=== PATIENT | female | born 1965 ===

== ENCOUNTER 2025-05-10 10:45 | Inpatient (IN) | payer OTHER ==
[~2025-05-10] VITALS: Ht 160 cm; Wt 52.2 kg
[2025-05-10 12:57] LABS: COVID-19 AG NEGATIVE (NEGATIVE)
[2025-05-10] MEDS ORDERED: TIROSINT88 MCG (14:20)
[2025-05-10] MEDS ORDERED: ANASTROZOLE1 MG (14:20)
[2025-05-16] MEDS ORDERED: METRONIDAZOLE/SODIUM CHLORIDE 500 MG/100 ML PIGGYBACK IV ONE (09:31)
[2025-05-16] MEDS ORDERED: CEFAZOLIN SODIUM 1,000 MG VIAL ONE ×2 (09:31→18:13)
[2025-05-16] MEDS ORDERED: POVIDONE-IODINE 118 ML BOTT TOP ONE (10:15)
[2025-05-16] MEDS ORDERED: HEPARIN SODIUM,PORCINE 5,000 UNITS/ML VIAL SPEPROC ONE (11:30)
[2025-05-16] MEDS ORDERED: SURGIFLO APPLICATOR 1 EACH APPL TOP ONE (12:34)
[2025-05-16] MEDS ORDERED: HEMOSTATIC MATRIX WITH THROMBIN KIT TOP ONE (12:34)
[2025-05-16] MEDS ORDERED: MORPHINE SULFATE 4 MG/ML CARTRIDGE IV PRN (14:00)
[2025-05-16] MEDS ORDERED: ONDANSETRON HCL 2 MG/ML VIAL IV PRN (14:00)
[2025-05-16] MEDS ORDERED: OxyCODONE HCL 5 MG TABLET (ROXICODONE) PO PRN (14:00)
[2025-05-16] MEDS ORDERED: RINGERS SOLUTION,LACTATED 1,000 ML IV SCH (14:00)
[2025-05-16 15:33] LABS: BASO % 0.1 % (0.1-1.2); EOS # 0.01 (0.04-0.54); EOS % 0.1 % (0.7-7.0); HEMATOCRIT 39.1 % (34.1-44.9); HEMOGLOBIN 12.8 g/dL (11.2-15.7); LYMPH # 0.59 (1.18-3.74); LYMPH % 5.5 % (19.3-53.1); MEAN CORPUSCULAR HEMOGLOBIN 29.4 pg (25.6-32.2); MONO # 0.41 (0.24-0.82); MONO % 3.8 % (4.7-12.5); NEUT % 90.2 % (34.0-71.1); PLATELET COUNT 203 K/uL (163-369); RED BLOOD COUNT 4.36 M/uL (3.93-5.22); RED CELL DISTRIBUTION WIDTH 14.7 % (11.6-14.4)
[2025-05-16 15:48] LABS: POTASSIUM 4.31 mEq/L (3.5-5.1)
[2025-05-16 15:53] LABS: ALBUMIN 3.7 gm/dL (3.4-5.0); CALCIUM 8.7 mg/dL (8.5-10.1); CREATININE SERUM 0.5 mg/dL (0.55-1.02); GFR 126.28; PHOSPHOROUS 3.4 mg/dL (2.5-4.9)
[2025-05-16] MEDS ORDERED: CEFAZOLIN SODIUM 1,000 MG VIAL IV SCH (17:00)
[2025-05-16] MEDS ORDERED: GABAPENTIN 300 MG CAPSULE PO SCH (17:00)
[2025-05-16] MEDS ORDERED: SIMETHICONE 125 MG CAPSULE PO SCH (17:00)
[2025-05-16] MEDS ORDERED: KETOROLAC TROMETHAMINE 30 MG VIAL IM SCH (18:00)
[2025-05-16] MEDS ORDERED: SIMETHICONE 125 MG CAPSULE PO ONE (18:12)
[2025-05-16] MEDS ORDERED: GABAPENTIN 300 MG CAPSULE PO ONE (18:12)
[2025-05-16] MEDS ORDERED: KETOROLAC TROMETHAMINE 30 MG VIAL ONE (18:13)
[2025-05-16 19:20] VITALS: BP 123/75; O2SAT 95
[2025-05-16] MEDS ORDERED: FAMOTIDINE/PF 20 MG/2 ML VIAL IV PUSH SCH (21:00)
[2025-05-17 01:11] VITALS: BP 111/63; O2SAT 99
[2025-05-17] MEDS ORDERED: LEVOTHYROXINE SODIUM 88 MCG TABLET PO SCH (06:00)
[2025-05-17] MEDS ORDERED: KETOROLAC TROMETHAMINE 30 MG VIAL IV SCH (06:17)
[2025-05-17 07:00] LABS: BASO % 0.1 % (0.1-1.2); EOS # 0.01 (0.04-0.54); EOS % 0.1 % (0.7-7.0); HEMATOCRIT 33.6 % (34.1-44.9); HEMOGLOBIN 11.1 g/dL (11.2-15.7); LYMPH # 0.58 (1.18-3.74); LYMPH % 7.5 % (19.3-53.1); MEAN CORPUSCULAR HEMOGLOBIN 29.1 pg (25.6-32.2); MONO # 0.48 (0.24-0.82); MONO % 6.2 % (4.7-12.5); NEUT # 6.69 (1.56-6.13); PLATELET COUNT 175 K/uL (163-369); RED BLOOD COUNT 3.81 M/uL (3.93-5.22); RED CELL DISTRIBUTION WIDTH 15.1 % (11.6-14.4)
[2025-05-17 07:43] LABS: ALBUMIN 2.7 gm/dL (3.4-5.0); CALCIUM 7.9 mg/dL (8.5-10.1); CREATININE SERUM 0.5 mg/dL (0.55-1.02); GFR 126.28; PHOSPHOROUS 3.9 mg/dL (2.5-4.9); POTASSIUM 3.62 mEq/L (3.5-5.1)
[2025-05-17 08:00] VITALS: BP 108/60; O2SAT 100
[2025-05-17] MEDS ORDERED: TRAMADOL HCL 50 MG TABLET PO PRN (08:30)
[2025-05-17] MEDS ORDERED: ENOXAPARIN SODIUM 40 MG/0.4 ML SYRINGE SUBCUTANEO SCH (09:00)
== END 2025-05-17 17:49 | disposition home or self-care (01) | DRG 738 ==
LOC: SURH 05-16 07:58 → O/R 05-16 07:58 → SURH 05-16 10:45
PROVIDERS: ADMIT Obstetrics & Gynecology Gynecologic Oncology; ATTEND Obstetrics & Gynecology Gynecologic Oncology
PROC: 0UT74ZZ Resection of Bilateral Fallopian Tubes, Percutaneous Endoscopic Approach (ICD-10-PCS; 2025-05-16)
PROC: 0UT24ZZ Resection of Bilateral Ovaries, Percutaneous Endoscopic Approach (ICD-10-PCS; 2025-05-16)
PROC: 0DBW4ZZ Excision of Peritoneum, Percutaneous Endoscopic Approach (ICD-10-PCS; 2025-05-16)
PROC: 0TBB4ZZ Excision of Bladder, Percutaneous Endoscopic Approach (ICD-10-PCS; 2025-05-16)
PROC: 07BC4ZZ Excision of Pelvis Lymphatic, Percutaneous Endoscopic Approach (ICD-10-PCS; 2025-05-16)
PROC: 0DBU4ZZ Excision of Omentum, Percutaneous Endoscopic Approach (ICD-10-PCS; 2025-05-16)
PROC: 0DBW4ZZ Excision of Peritoneum, Percutaneous Endoscopic Approach (ICD-10-PCS; 2025-05-16)
PROC: 8E0W4CZ Robotic Assisted Procedure of Trunk Region, Percutaneous Endoscopic Approach (ICD-10-PCS; 2025-05-16)
PROC: 0UT94ZZ Resection of Uterus, Percutaneous Endoscopic Approach (ICD-10-PCS; principal; 2025-05-16 21:30)
DX: C56.3 Malignant neoplasm of bilateral ovaries (principal); D25.1 Intramural leiomyoma of uterus; D25.2 Subserosal leiomyoma of uterus; D25.0 Submucous leiomyoma of uterus; C76.3 Malignant neoplasm of pelvis; C67.9 Malignant neoplasm of bladder, unspecified; C57.3 Malignant neoplasm of parametrium; C57.02 Malignant neoplasm of left fallopian tube; C57.01 Malignant neoplasm of right fallopian tube
CPT/HCPCS: 58548; 58662; 58951; 58953; S2900